=== PATIENT | female | born 1965 | race Caucasian/White ===

== ENCOUNTER → 2017-06-29 | Outpatient (CLI) | payer OTHER ==
[~2017-06-29] MED LIST: ATOR20TA65 PO; BUPR150SR PO; FERS325 PO; FOLI1TAB85 PO; LOSA50TA37 PO
== END | disposition home or self-care (01) ==
LOC: RAH 13:47
PROVIDERS: ATTEND Obstetrics & Gynecology
DX: Z12.31 Encounter for screening mammogram for malignant neoplasm of breast (principal)
CPT/HCPCS: 77067

== ENCOUNTER → 2018-09-04 | Outpatient (CLI) | payer OTHER ==
[~2018-09-04] MED LIST changes: -LOSA50TA37 PO; +LOSA50TA64 PO
== END | disposition home or self-care (01) ==
LOC: RAH 12:59
PROVIDERS: ATTEND Obstetrics & Gynecology
DX: Z12.31 Encounter for screening mammogram for malignant neoplasm of breast (principal)
CPT/HCPCS: 77067

== ENCOUNTER → 2021-01-03 | Outpatient (CLI) | payer BC | END | disposition home or self-care (01) | LOC: RAH 10:01 | PROVIDERS: ATTEND Obstetrics & Gynecology | DX: Z12.31 Encounter for screening mammogram for malignant neoplasm of breast (principal) | CPT/HCPCS: 77067 ==

== ENCOUNTER → 2022-01-04 | Outpatient (CLI) | payer BC ==
[~2022-01-04] MED LIST changes: +BUPR-72 PO; -BUPR150SR PO
== END | disposition home or self-care (01) ==
LOC: RAH 09:07
PROVIDERS: ATTEND Obstetrics & Gynecology
DX: Z12.31 Encounter for screening mammogram for malignant neoplasm of breast (principal)
CPT/HCPCS: 77067

== ENCOUNTER → 2023-01-08 | Outpatient (CLI) | payer BC | END | disposition home or self-care (01) | LOC: RAH 08:42 | PROVIDERS: ATTEND Obstetrics & Gynecology | DX: Z12.31 Encounter for screening mammogram for malignant neoplasm of breast (principal) | CPT/HCPCS: 77067 ==

== ENCOUNTER → 2024-02-01 | Outpatient (CLI) | payer BC | END | disposition home or self-care (01) | LOC: RAH 12:41 | PROVIDERS: ATTEND Obstetrics & Gynecology | DX: Z12.31 Encounter for screening mammogram for malignant neoplasm of breast (principal) | CPT/HCPCS: 77067 ==

== ENCOUNTER → 2024-04-09 | Outpatient (CLI) | payer BC ==
[~2024-04-09] MED LIST changes: +AMLO-258 PO; -BUPR-72 PO; +CHOL200012 PO; +FOLI0.8T22 PO; -FOLI1TAB85 PO; +LORA10TA7 PO; -LOSA50TA64 PO; +METO-408 PO; +PATI8.4P PO; +PROGESTERONE PO; +ROPI0.5T37 PO; +SODI650T PO
--- NOTE | 2024-04-09 18:49 | HMCSR ---
APPROVED REPORT EXAM: Two-dimensional and M-mode echocardiogram with Doppler and color Doppler. INDICATION ICD: Z01.818 Pre-Op 2D Dimensions RVDd3.6 cmLVEF(%)56.8 (>50%)LVED Vol(simp.)81.0 mL IVSd0.9 (0.7-1.1cm)FS(%)30 %LVES Vol(simp.)28.0 mL LVDd4.4 (3.8-5.6cm)LA (2D)4.0 (1.6-4.0cm)LVEF(%, simp.)65 % PWd1.0 (0.7-1.1cm)Ao Root(2D)2.9 (2.0-3.7cm)LA ESV INDEX (4CH)27.70 mL/m2 IVSs1.1 cmLVOT diam1.9 (1.8-2.4cm)LA ESV INDEX (2CH)19.00 mL/m2 LVDs3.1 (2.5-4.0cm)IVC diam1.6 cm PWs1.2 cm M-Mode Dimensions EPSS0.8 cm LA (MM)3.9 (1.6-4.0cm) Ao Root(MM)2.6 (2.0-3.7cm) Aortic Valve AoV VTI0.3 mAo Mean GR3.0 mmHgLVOT VTI0.22 m ROMULO (VMAX)2.4 cm2AVA (VTI) 2.4 cm2 Mitral Valve MV E Vmax38.5 cm/sDECEL Rigu749 ms MV A Vmax56.8 cm/sP 1/2 T48 ms E/A ratio0.7MVA (PHT)4.6 cm2 TDI E/E' Medial8.4E/E' Lateral8.4 Medial E' Peak V4.60 cm/sLateral E' Peak V4.60 cm/s Pulmonary Valve PI End Nida. Curtis 73.3 cm/s Tricuspid Valve TR Vmax2.3 m/s TR Peak GR20.0 mmHg Left Ventricle The left ventricle is normal size. There is normal LV segmental wall motion. There is normal left delvis tricular wall thickness. LVEF is 55-60%. The left ventricular diastolic function is normal. Right Ventricle The right ventricle is normal size. The right ventricular systolic function is normal. Atria The left atrium size is normal. The right atrium size is normal. Aortic Valve The aortic valve is normal in structure. No aortic regurgitation is present. There is no aortic valvu lar stenosis. Mitral Valve The mitral valve is normal in structure. There is trace mitral valve regurgitation noted. There is no mitral valve stenosis. Tricuspid Valve The tricuspid valve is normal in structure. There is trace tricuspid valve regurgitation noted. Pulmonic Valve Pulmonic valve is not well visualized. There is no pulmonic valvular regurgitation. Great Vessels The aortic root is normal in size. The IVC is normal in size and collapses >50% with inspiration. Pericardium There is trace-small pericardial effusion. Other Information Quality : Good Conclusion The left ventricle is normal size. LVEF is 55-60% with normal LV segmental wall motion. The left ventricular diastolic function is normal. The right ventricular systolic function is normal. Both atria are normal in size. No hemodynamically significant valvular abnormalities. There is trace-small pericardial effusion.
== END | disposition home or self-care (01) ==
LOC: RAH 03-19 13:00
PROVIDERS: ATTEND Internal Medicine Nephrology
DX: Z01.810 Encounter for preprocedural cardiovascular examination (principal); I12.0 Hypertensive chronic kidney disease with stage 5 chronic kidney disease or end stage renal disease; N18.6 End stage renal disease; I31.39 Other pericardial effusion (noninflammatory)
CPT/HCPCS: 93306

== ENCOUNTER → 2025-03-20 | Outpatient (CLI) | payer BC, MEDICARE | END | disposition home or self-care (01) | LOC: RAH 14:43 | PROVIDERS: ATTEND Obstetrics & Gynecology | DX: Z12.31 Encounter for screening mammogram for malignant neoplasm of breast (principal) | CPT/HCPCS: 77063; 77067 ==